=== PATIENT | male | born 1990 | race Caucasian/White ===

== ENCOUNTER 2018-10-11 23:12 | Observation (INO) | payer BC ==
[2018-10-12 00:13] LABS: #Eosinphils 0.3 thou/uL (0.0-0.7); #Lymphocytes 1.1 thou/uL (1.20-3.40); #Neutrophils 12.3 thou/uL (1.40-6.50); %Basophils 0.2 % (0.0-1.0); %Eosinophils 2.2 % (0.0-10.0); %Lymphocytes 7.3 % (21.0-51.0); %Neutrophils 83.4 % (42.0-75.0); Hemoglobin 15.6 g/dL (14.0-18.0); Mean Corpuscular HGB CONC 33.6 g/dL (32.0-36.0); Mean Corpuscular Hemoglobin 30.9 pg (27.0-31.0); Mean Corpuscular Volume 92.1 fL (78.0-98.0); Platelet Count 167 thou/uL (130-400); RBC Distribution Width 11.8 % (11.5-14.5); Red Blood Cell (RBC) Count 5.04 mill/uL (4.70-6.10); White Blood Cell (WBC) Count 14.8 thou/uL (4.8-10.8)
[2018-10-12 00:29] LABS: ALT (SGPT) 31 U/L (8-55); AST (SGOT) 20 U/L (5-34); Albumin 4.2 g/dL (3.5-5.0); Alkaline Phosphatase 65 U/L (40-150); Anion Gap 13 mmol/L (10-20); BUN (Urea Nitrogen) 13 mg/dL (8.9-20.6); Calc. Creatinine Clearance 0 mL/min (70-130); Calcium 9.4 mg/dL (7.8-10.44); Carbon Dioxide 25 mmol/L (22-29); Chloride 104 mmol/L (98-107); Estimated GFR-MDRD Greater than 90; Globulin 2.5 g/dL (2.4-3.5); Glucose 131 mg/dL (70-105); Potassium 3.9 mmol/L (3.5-5.1); Protein, Total 6.7 g/dL (6.0-8.3); Sodium 138 mmol/L (136-145)
[2018-10-12] MEDS ORDERED: Ondansetron PF 4 MG/2 ML Vial ONE ×2 (02:29→14:26)
[2018-10-12] MEDS ORDERED: Ketorolac Tromethamine 30 MG/ML VIAL ONE ×2 (02:29→12:19)
[2018-10-12 02:38] LABS: Bilirubin Negative (Negative); Blood, Urine Negative (Negative); Clarity CLEAR (Clear); Glucose, Urine (Dipstick) Negative (Negative); Leukocyte Negative (Negative); Nitrite Negative (Negative); Protein, Urine (Dipstick) Negative (Neg-Trace)
[2018-10-12 02:40] LABS: Specific Gravity, Urine Greater than 1.060 (1.002-1.036)
[2018-10-12 04:21] VITALS: BMI 36.3
[2018-10-12] MEDS ORDERED: Ondansetron PF 4 MG/2 ML Vial IVP PRN (04:35)
[2018-10-12] MEDS ORDERED: Ondansetron ODT 4 MG TAB SL PRN (04:35)
[2018-10-12] MEDS ORDERED: Morphine 4 MG/ML VIAL SLOW IVP PRN (04:36)
[2018-10-12] MEDS: Sodium Chloride 0.9% 1,000 ML IV SCH ×2 (05:58→12:16)
[2018-10-12] MEDS ORDERED: HumaLOG 300 UNITS/3 ML VIAL SC PRN ×2 (06:00)
[2018-10-12] MEDS ORDERED: Dextrose 5% in Water 1,000 ML IV PRN (06:00)
[2018-10-12] MEDS ORDERED: Dextrose 50% Abboject 50 ML SYRINGE IVP PRN (06:00)
[2018-10-12 08:46] VITALS: TEMP 98.2
[2018-10-12] MEDS ORDERED: Sodium Chloride 0.9% 1,000 ML IV SCH (09:15)
[2018-10-12] MEDS ORDERED: Acetaminophen 1,000 MG in Premix Bag 1 BAG IVPB SCH (09:15)
[2018-10-12] MEDS ORDERED: Ketorolac Tromethamine 30 MG/ML VIAL IVP SCH (09:15)
[2018-10-12] MEDS ORDERED: cefOXitin 2 GM in Sodium Chloride 0.9% 100 ML IVPB SCH (09:15)
--- NOTE | 2018-10-12 09:28 | RAD ---
CHEST 1 VIEW: Date: 10/12/18 HISTORY: Preoperative evaluation, fever and abdominal pain. FINDINGS: Heart size is normal. The lungs are clear. IMPRESSION: No acute intrathoracic disease. POS: [facility]
--- NOTE | 2018-10-12 11:31 | HP ---
CHIEF COMPLAINT: Right lower quadrant abdominal pain. HISTORY OF PRESENT ILLNESS: The patient is a 28-year-old diabetic white male. He had onset of lower abdominal pain yesterday at about noon. In the late at night, he presented to the emergency room where he underwent radiologic and laboratory evaluation. His laboratory studies revealed elevated white blood cell count of 14.0 with a hemoglobin of 15.6. His chemistry profile was unremarkable except for his elevated glucose level. His CT scan of his abdomen revealed findings consistent with acute non-perforated appendicitis. He was given intravenous antibiotics and admitted to my service. He tells me this morning that he feels better but still has tenderness in the right lower quadrant. PAST MEDICAL HISTORY: Type 1 diabetic since age 14. PAST SURGICAL HISTORY: Left shoulder surgery. MEDICATIONS: Insulin, self-administered. ALLERGIES: NO KNOWN DRUG ALLERGIES. PERSONAL AND SOCIAL HISTORY: He is , with no children. 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 He does not smoke. He drinks alcohol occasionally. REVIEW OF SYSTEMS: Otherwise unremarkable. FAMILY HISTORY: Noncontributory. PHYSICAL EXAMINATION: VITAL SIGNS: His temperature is 98.1, pulse 84, blood pressure 127/73. GENERAL: He is a well-developed, well-nourished, pleasant white male resting in bed, in no acute distress. He is alert and oriented x3. HEAD, EYES, EARS, NOSE, AND THROAT: Unremarkable. NECK: Supple without mass or tenderness. LUNGS: Clear to auscultation throughout. CARDIAC: Regular rate and rhythm without murmur. ABDOMEN: Soft with focal tenderness in the right lower quadrant in the area typical of appendicitis. Bowel sounds are present and normoactive. EXTREMITIES: Unremarkable. ASSESSMENT: The patient with acute appendicitis. PLAN: Laparoscopic appendectomy. I discussed the operation in detail with the patient as well as potential risks. He understands and agrees to proceed with the surgery at this time. Job ID: [id number]
--- NOTE | 2018-10-12 12:02 | CT ---
PRELIMINARY REPORT/[facility]/EMERGENCY AFTER HOURS PROCEDURE: Addendum created by Renny Perez MD on 10/12/2018 2:20 AM Central Time ([place] & [place]) Dr. Fleming has re ceived the report, has no questions or concerns, declined cc. at 10/12/2018 2:20 AM CDT. Initial Repor t created on 10/12/2018 2:03 AM Central Time ([place] & [place]) EXAM: CT Abdomen and Pelvis With Contrast EXAM DATE/TIME: 10/12/2018 1:27 AM CLINICAL HISTORY: 28 years old, male; Pain; Abdominal pain; Localized; Lower; Patient HX: Lower abdominal pain with fev er since noon today. ; Additional info: *iv only per ordering doctor TECHNIQUE: Axial computed tomography images of the abdomen and pelvis with intravenous contrast. Coronal reforma tted images were created and reviewed. COMPARISON: No relevant prior studies available. FINDINGS: Lower thorax: No acute findings. ABDOMEN: Liver: Normal. No mass. Gallbladder and bile ducts: Normal. No calcified stones. No ductal dilation. Pancreas: Normal. No ductal dilation. Spleen: There is borderline splenomegaly. Adrenals: Normal. No mass. Kidneys and ureters: Normal. No hydronephrosis. Stomach and bowel: Normal. No obstruction. No mucosal thickening. Appendix: The appendix is mildly dilated measuring up to 8mm diameter and partly isodense and partly fluid-filled with possible subtle periappendiceal fat stranding, cannot exclude mild or early changes of acute appendicitis without signs of perforation. The appendix is seen best on axial image 70 and coronal image 68. PELVIS: Bladder: Unremarkable as visualized. Reproductive: Unremarkable as visualized. ABDOMEN and PELVIS: Intraperitoneal space: Normal. No free air. No significant fluid collection. Bones/joints: No acute fracture. No dislocation. Soft tissues: Unremarkable. Vasculature: Normal. No abdominal aortic aneurysm. Lymph nodes: Normal. No enlarged lymph nodes. IMPRESSION: 1. The appendix is mildly dilated measuring up to 8mm diameter and partly isodense and partly fluidfi lled with possible subtle periappendiceal fat stranding, cannot exclude mild or early changes of acut e appendicitis without signs of perforation. 2. No other acute CT pathology. Thank you for allowing us to participate in the care of your patient. Dictated and Authenticated by: Renny Perez MD 10/12/2018 2:03 AM Central Time ([place] & [place]) FINAL REPORT EMERGENCY AFTER HOURS ABDOMEN AND PELVIC CT SCAN: Date: 10/12/18 Time: 0129 hours FINDINGS/IMPRESSION: The appendix is minimally dilated and does not contain air, with what appears to be some subtle wall thickening and possible mild periappendiceal fat stranding, evidence for minimal early acute appendic itis. Scattered small mesenteric lymph nodes. No obstructing calculus. No abscess or extraluminal gas. Report in agreement with preliminary report given on-call by Royce. POS: [facility]
[2018-10-12] MEDS ORDERED: ISOVUE-370 76%-LOCM 1 ML ONE (13:02)
[2018-10-12] MEDS ORDERED: ceFAZolin Sodium 2 GM/100 ML BAG ONE (13:03)
[2018-10-12] MEDS ORDERED: Sodium Chloride 0.9% 100 ML ONE (13:03)
[2018-10-12] MEDS ORDERED: cefOXitin 2 GM VIAL ONE (13:03)
[2018-10-12] MEDS ORDERED: Famotidine/PF 20 mg/2ml Vial ONE (13:25)
[2018-10-12] MEDS ORDERED: Fentanyl 100 MCG/2 ML VIAL ONE (13:25)
[2018-10-12] MEDS ORDERED: Bupivacaine/Epinephrine 0.25% 30 ML VIAL ONE (13:29)
[2018-10-12] MEDS ORDERED: PROPOFOL 200 MG/20 ML VIAL ONE (14:26)
[2018-10-12] MEDS ORDERED: Metoclopramide HCl 10 MG/2 ML VIAL ONE (14:26)
[2018-10-12] MEDS ORDERED: Lidocaine 1% PF 5 ML VIAL ONE (14:26)
[2018-10-12] MEDS ORDERED: Glycopyrrolate 0.2 MG/ML 5 ML SYRINGE ONE (14:26)
[2018-10-12] MEDS ORDERED: Rocuronium Bromide 10 MG/ML (10ML VIAL) ONE (14:26)
[2018-10-12] MEDS ORDERED: Succinylcholine Chloride 20 MG/ML 10 ml SYRINGE FS ONE (14:26)
[2018-10-12] MEDS ORDERED: Ondansetron HCl/PF 4 MG/2 ML Vial IVP PRN (14:48)
[2018-10-12] MEDS ORDERED: Promethazine HCl 25 MG/ML VIAL SLOW IVP PRN (14:48)
[2018-10-12] MEDS ORDERED: Promethazine HCl 25 MG/ML VIAL IM PRN (14:48)
[2018-10-12] MEDS ORDERED: Meperidine HCl/PF 25 MG/ML VIAL SLOW IVP PRN (14:48)
[2018-10-12 15:51] VITALS: BP 105/62
--- NOTE | 2018-10-13 14:16 | OP ---
DATE OF PROCEDURE: 10/12/2018 PREOPERATIVE DIAGNOSIS: Acute appendicitis. POSTOPERATIVE DIAGNOSIS: Acute appendicitis. OPERATION PERFORMED: Laparoscopic appendectomy. ANESTHESIA: General endotracheal. INDICATIONS: The patient is a 28-year-old white male. He presented with findings consistent with acute appendicitis. He was taken to the operative room at this time for laparoscopic appendectomy. DESCRIPTION OF OPERATION: Informed consent was obtained, patient taken to the operating room where general endotracheal anesthesia obtained with the patient in supine position. Abdomen was prepped with ChloraPrep and draped in sterile fashion. Local anesthetic was infiltrated using 0.25% Marcaine with epinephrine and a 5 mm infraumbilical incision was created. Veress needle was passed through this incision. The peritoneal cavity and pneumoperitoneum established using carbon dioxide up to a pressure of 15 mmHg. A 5 mm trocar port was passed through the same incision. A laparoscopic camera passed through this port. Under direct vision, 2 additional ports were placed using a 5 mm left lower quadrant port and a 12 mm suprapubic port. Attention was turned to the right lower quadrant where obvious appendicitis was noted. The appendix was severely inflamed and indurated, but not perforated. The mesoappendix was grasped and taken down using electrocautery. The base of the appendix was skeletonized. It was then divided between 2 PDS endoloop ties. The appendiceal stump was thoroughly cauterized. The appendix was placed in a specimen retrieval sac and removed through the suprapubic port. The fascia was closed with 0 Vicryl suture using a GraNee needle. The right lower quadrant pelvis was thoroughly irrigated and all irrigant was aspirated. All ports and instruments were removed under direct vision. Pneumoperitoneum was carefully evacuated. Marcaine 0.25% with epinephrine was infiltrated into port site. Skin edges approximated with 4-0 Monocryl subcuticular suture. Dermabond was placed externally. There were no complications. The patient was taken to recovery in stable condition. Job ID: [id number]
== END 2018-10-12 17:17 | disposition home or self-care (01) ==
LOC: ERS 23:12 → SURG A 10-12 03:05
PROVIDERS: ADMIT Specialist; ATTEND Specialist
PROC: 0DTJ4ZZ Resection of Appendix, Percutaneous Endoscopic Approach (ICD-10-PCS; principal; 2018-10-12)
DX: K35.80 Unspecified acute appendicitis (principal); E10.9 Type 1 diabetes mellitus without complications
CPT/HCPCS: 36415; 36416; 71045; 74177; 80053; 81003; 85025; 88304; 93005; 96361; 96374; 96375; G0378; J0131; J0690; J0694; J1885; J2001; J2175; J2405; J2704; J2765; J3010; J7050; Q9966; S0028